=== PATIENT | male | born 1995 | race Caucasian/White ===

== ENCOUNTER 2018-01-31 22:01 | Emergency (ER) | payer SELFPAY ==
[~2018-01-31] VITALS: Ht 180.3 cm; Wt 72.6 kg
[2018-01-31 22:11] VITALS: Ht 180.3 cm; Wt 72.6 kg
[2018-02-01 00:16] VITALS: BP 128/69
== END 2018-02-01 00:16 | disposition home or self-care (01) ==
LOC: ED 22:01
DX: S83.005A Unspecified dislocation of left patella, initial encounter (principal); X58.XXXA Exposure to other specified factors, initial encounter; Y93.72 Activity, wrestling; Y92.89 Other specified places as the place of occurrence of the external cause; Y99.8 Other external cause status
CPT/HCPCS: J3490; Q0092